=== PATIENT | male | born 1960 | race Two or more races ===

== ENCOUNTER 2023-08-11 07:00 | Inpatient (IN) | payer OTHER ==
[2023-08-11] MEDS ORDERED: NEURONTIN800 MG PO (08:19)
[2023-08-11] MEDS ORDERED: [UNRECOGNIZED DRUG - OTHER] (08:20)
[2023-08-11] MEDS ORDERED: VITAMIN B125000 MCG PO (08:21)
[2023-08-11] MEDS ORDERED: VITAMIN C60 MG (08:21)
[2023-08-11] MEDS ORDERED: OMEGA-31000 MG (08:21)
[2023-08-11 08:29] LABS: HEMATOCRIT 42.7 % (39.0-48.0); HEMOGLOBIN 14.5 g/dL (13-16.00); MEAN CORPUSCULAR HEMOGLOBIN 29.9 pg (27.00-32.0); MEAN CORPUSCULAR HGB CONC 33.9 g/dl (32.0-36.0); PLATELET COUNT 268 K/uL (150-450); RED BLOOD COUNT 4.85 M/uL (4.00-6.00); RED CELL DISTRIBUTION WIDTH 13.4 % (11.5-14.5)
[2023-08-11 08:36] LABS: URINE BACTERIA 59.1 uL (0.0-1933); URINE EPITHELIAL CELLS 2.9 uL (0.0-38.8); URINE WBC 45.1 uL (0.0-23.2)
[2023-08-11 08:39] LABS: URINE APPEARANCE Clear; URINE BILIRRUBIN Negative (NEGATIVE); URINE BLOOD Negative; URINE COLOR Yellow; URINE GLUCOSE Negative (NEGATIVE); URINE LEUKOCYTE Small; URINE NITRATE Negative; URINE PROTEIN Negative (NEGATIVE)
[2023-08-11 09:30] LABS: ALBUMIN 4.2 gm/dL (3.4-5.0); BILIRUBIN TOTAL 0.92 mg/dL (0.3-1.2); CALCIUM 9.9 mg/dL (8.5-10.1); CREATININE SERUM 0.87 mg/dL (0.70-1.30); GFR 88.63; GLOBULINA 4.1 G/DL (2.4-3.5); POTASSIUM 3.91 mEq/L (3.5-5.1); TOTAL PROTEIN 8.3 gm/dL (6.4-8.2)
[2023-08-11 10:23] LABS: INR 1.09; PARTIAL THROMBOPLASTIN TIME 28.8 SECONDS (22.0-34.0); PROTHROMBIN TIME 11.4 SECONDS (9.0-11.5)
[2023-08-19] MEDS ORDERED: KETOROLAC TROMETHAMINE 60 MG VIAL IM ONE ×2 (12:15→15:45)
[2023-08-19] MEDS ORDERED: VANCOMYCIN HCL 1,000 MG VIAL ONE (12:16)
[2023-08-19] MEDS ORDERED: TRANEXAMIC ACID 100MG/1ML (1000MG) AMPUL IV ONE ×3 (12:16→15:45)
[2023-08-19] MEDS ORDERED: CEFAZOLIN SODIUM 1,000 MG VIAL ONE ×2 (12:16→16:57)
[2023-08-19] MEDS ORDERED: OxyCODONE HCL 5 MG TABLET (ROXICODONE) PO PRN (14:00)
[2023-08-19] MEDS ORDERED: ONDANSETRON HCL 2 MG/ML VIAL IV PRN (14:00)
[2023-08-19] MEDS ORDERED: SODIUM CHLORIDE 0.45 % 1,000 ML IV SCH (14:00)
[2023-08-19] MEDS ORDERED: MORPHINE SULFATE 4 MG/ML CARTRIDGE IV PRN (14:00)
[2023-08-19] MEDS ORDERED: CEFAZOLIN SODIUM 1,000 MG VIAL IV ONE (15:45)
[2023-08-19] MEDS ORDERED: LIDOCAINE HCL 1%/Epi 20ML VIAL IJ ONE (15:45)
[2023-08-19] MEDS ORDERED: VANCOMYCIN HCL 1,000 MG VIAL IR ONE (15:45)
[2023-08-19] MEDS ORDERED: BUPIVACAINE HCL 30 ML VIAL IJ ONE (15:45)
[2023-08-19] MEDS ORDERED: CEFAZOLIN SODIUM 1,000 MG VIAL IV SCH (17:00)
[2023-08-19] MEDS ORDERED: GABAPENTIN 300 MG CAPSULE PO SCH (17:00)
[2023-08-20 06:14] LABS: HEMATOCRIT 33.8 % (39.0-48.0); HEMOGLOBIN 11.7 g/dL (13-16.00); MEAN CELL VOLUME 86.8 fL (80.0-100.00); MEAN CORPUSCULAR HEMOGLOBIN 29.9 pg (27.00-32.0); MEAN CORPUSCULAR HGB CONC 34.5 g/dl (32.0-36.0); PLATELET COUNT 206 K/uL (150-450); RED BLOOD COUNT 3.89 M/uL (4.00-6.00); RED CELL DISTRIBUTION WIDTH 12.8 % (11.5-14.5)
[2023-08-20] MEDS ORDERED: ELIQUIS2.5 MG PO (08:58)
[2023-08-20] MEDS ORDERED: DUI500 PO (08:58)
[2023-08-20] MEDS ORDERED: PERCOCET 5-3251 EACH PO (08:58)
[2023-08-20] MEDS ORDERED: SENNOSIDES 1 TAB TABLET PO SCH (09:00)
[2023-08-20] MEDS ORDERED: APIXABAN 2.5 MG TABLET PO SCH (09:00)
[2023-08-20] MEDS ORDERED: Cyanocobalamin/Mecobalamin 1 TAB.SL SL SCH (12:39)
[2023-08-20] MEDS ORDERED: VITAMIN B COMPLEX 1 EACH PO SCH (12:39)
[2023-08-20] MEDS ORDERED: SOD FERRIC GLUC COMPLX/SUCROSE 62.5 MG/5 ML AMPUL IV SCH (12:39)
[2023-08-21 05:05] LABS: HEMATOCRIT 32.4 % (39.0-48.0); MEAN CELL VOLUME 88.1 fL (80.0-100.00); MEAN CORPUSCULAR HGB CONC 34.4 g/dl (32.0-36.0); PLATELET COUNT 185 K/uL (150-450); RED BLOOD COUNT 3.67 M/uL (4.00-6.00); RED CELL DISTRIBUTION WIDTH 12.9 % (11.5-14.5)
[2023-08-21 05:22] LABS: HEMOGLOBIN 11.1 g/dL (13-16.00); MEAN CORPUSCULAR HEMOGLOBIN 30.2 pg (27.00-32.0)
[2023-08-21] MEDS ORDERED: IRON FUM,PS/FOLIC ACID/VITC/B3 1 CAP CAPSULE PO SCH (09:00)
[2023-08-21] MEDS ORDERED: OxyCODONE HCL 5 MG TABLET (ROXICODONE) PO PRN (14:15)
== END 2023-08-21 18:53 | DRG 470 ==
LOC: O/R 08-19 05:30 → SURG 08-19 07:00 → OB/GYN 08-19 07:00 → SURH 08-19 16:44 → SURG 08-19 19:00 → SURH 08-21 18:53
PROVIDERS: ADMIT Orthopaedic Surgery; ATTEND Orthopaedic Surgery
PROC: 0MBL0ZZ Excision of Right Hip Bursa and Ligament, Open Approach (ICD-10-PCS; 2023-08-19)
PROC: 0SR90JZ Replacement of Right Hip Joint with Synthetic Substitute, Open Approach (ICD-10-PCS; principal; 2023-08-19 19:00)
DX: M16.11 Unilateral primary osteoarthritis, right hip (principal); D62 Acute posthemorrhagic anemia; M89.751 Major osseous defect, right pelvic region and thigh; M70.61 Trochanteric bursitis, right hip